=== PATIENT | male | born 1980 | race Caucasian/White ===

== ENCOUNTER 2016-04-02 01:53 | Emergency (ER) | payer OTHER ==
[~2016-04-02] VITALS: Ht 170.1 cm; Wt 97.5 kg
[~2016-04-02 01:53] MED LIST: ACETAMINOPHEN; AMOXICILLIN500 MG PO; ANAPROX DS550 MG PO; ANUSOL-HC25 MG R; AUGMENTIN 875 M1 TAB PO; AUGMENTIN 875875 MG PO; BACTRIM DS 8001 TA1 PO; CATAFLAM50 MG PO; CELEBREX200 MG PO; CIPRO500 MG PO; CLARITIN10 MG PO; CLEOCIN HCL150 MG PO; CLEOCIN150 MG; CLEOCIN150 MG PO; CLINDAMYCIN HC150 MG PO; CLINDAMYCIN HC300 MG PO; CLINDAMYCIN150 MG PO; DIFLUCAN200 MG; DOLOBID500 MG PO; EC NAPROSYN500 MG PO; FLAGYL500 MG PO; FLONASE ALLERG9.9 ML NAS; HYDROC; HYDROCODONE BIT1 T11 PO; IBU800 MG PO; IBUPROFEN200 M1; KEFLEX500 M1 PO; KEFLEX500 MG PO; KETOROLAC10 MG PO; LIDODERM 5% PATC1 EA T; MEDROL DOSEPAK4 MG PO; MELOXICAM7.5 MG PO; MIRALAX POWDER255 GM PO; MOTRIN 800 MG E4 TAB PO; MOTRIN IB200 MG PO; MOTRIN,RUFEN800 MG PO; MOTRIN800 MG; MOTRIN800 MG PO; Motrin,Rufen800 MG PO; NAPROSYN375 MG PO; NAPROSYN500 MG PO; NAPROXEN550 M1 PO; NEURONTIN300 MG PO; NKHM; NORCO 5-325 TA1 EACH PO; NORFLEX100 MG PO; OXAYDO5 MG PO; OXYCODONE HCL5 MG PO; Orphenadrine C100 MG PO; PEN-VEE K500 MG PO; PEN-VK500 MG PO; PENICILLIN VK500 MG PO; PERCOCET 325 MG1 TA2 PO; PERIDEX 480 ML480 ML PO; PREDNICOT20 MG PO; PREDNISONE10 MG PO; PREDNISONE20 M1 PO; RELAFEN500 MG PO; ROBAXIN750 MG PO; SEPTRA DS 800 M1 TAB PO; SKELAXIN800 M1 PO; TORADOL10 MG PO; TRIMOX500 MG PO; TYLENOL EXTRA500 M2 PO; VALIUM10 MG PO; VICO10300 PO; VICODIN 5/500 505 MG; VICODIN 5/500 505 MG PO; VICODIN 500 MG-1 TAB PO; VICODIN ES 7501 TAB PO; VOLTAREN50 M1 PO; VOLTAREN50 MG PO; VOLTAREN75 MG PO; WYMOX500 MG PO; ZANAFLEX4 M1 PO
[2016-04-02] MEDS ORDERED: PREDNISONE20 M1 PO (02:20)
[2016-04-02] MEDS ORDERED: SKELAXIN800 M1 PO (02:20)
[2016-04-02] MEDS ORDERED: Motrin,Rufen800 MG PO (02:23)
[2016-05-06] MEDS ORDERED: OXYCODONE HCL5 MG PO (01:35)
[2016-05-06] MEDS ORDERED: Motrin,Rufen800 MG PO (01:35)
[2016-05-06] MEDS ORDERED: Orphenadrine C100 MG PO (01:35)
[2016-05-10] MEDS ORDERED: NORCO 5-325 TA1 EACH PO (04:02)
[2016-05-10] MEDS ORDERED: BACTRIM DS 8001 TAB PO (04:02)
[2016-05-20] MEDS ORDERED: OXYCODONE HCL5 MG PO (02:45)
== END 2016-04-02 02:53 | disposition home or self-care (01) ==
LOC: ED 01:53
DX: M54.40 Lumbago with sciatica, unspecified side (principal); F17.200 Nicotine dependence, unspecified, uncomplicated; M25.512 Pain in left shoulder; M25.511 Pain in right shoulder; G89.29 Other chronic pain; Z98.890 Other specified postprocedural states; Z88.5 Allergy status to narcotic agent; Z88.6 Allergy status to analgesic agent; Z88.8 Allergy status to other drugs, medicaments and biological substances; X58.XXXA Exposure to other specified factors, initial encounter; Y93.89 Activity, other specified; Y92.69 Other specified industrial and construction area as the place of occurrence of the external cause; Y99.9 Unspecified external cause status

== ENCOUNTER 2016-04-04 00:43 | Emergency (ER) | payer OTHER ==
[~2016-04-04] VITALS: Ht 170.1 cm; Wt 97.5 kg
[2016-04-04] MEDS ORDERED: NEURONTIN300 MG PO (01:14)
[2016-04-05] MEDS ORDERED: HYDROCODONE BIT1 T11 PO (04:50)
[2016-05-06] MEDS ORDERED: OXYCODONE HCL5 MG PO (01:35)
[2016-05-06] MEDS ORDERED: Motrin,Rufen800 MG PO (01:35)
[2016-05-06] MEDS ORDERED: Orphenadrine C100 MG PO (01:35)
[2016-05-10] MEDS ORDERED: BACTRIM DS 8001 TAB PO (04:02)
[2016-05-10] MEDS ORDERED: NORCO 5-325 TA1 EACH PO (04:02)
[2016-05-20] MEDS ORDERED: OXYCODONE HCL5 MG PO (02:45)
== END 2016-04-04 01:30 | disposition home or self-care (01) ==
LOC: ED 00:43
DX: M54.40 Lumbago with sciatica, unspecified side (principal); M25.512 Pain in left shoulder; M25.511 Pain in right shoulder; G89.29 Other chronic pain; F17.200 Nicotine dependence, unspecified, uncomplicated; Z98.890 Other specified postprocedural states; Z88.5 Allergy status to narcotic agent; Z88.8 Allergy status to other drugs, medicaments and biological substances; X58.XXXA Exposure to other specified factors, initial encounter; Y93.89 Activity, other specified; Y92.89 Other specified places as the place of occurrence of the external cause; Y99.9 Unspecified external cause status

== ENCOUNTER 2016-04-05 03:05 | Emergency (ER) | payer OTHER ==
[~2016-04-05] VITALS: Ht 170.1 cm; Wt 97.5 kg
[2016-04-05 04:12] LABS: BILIRUBIN NEGATIVE (NEGATIVE); BLOOD NEGATIVE (NEGATIVE); CLARITY CLEAR (CLEAR); COLOR YELLOW (YELLOW); GLUCOSE NEGATIVE (NEGATIVE); KETONE TRACE (NEGATIVE); LEUKO ESTERASE NEGATIVE (NEGATIVE); NITRITE NEGATIVE (NEGATIVE); PH 6.5 (5.0-9.0); PROTEIN NEGATIVE (NEGATIVE); UROBILINOGEN 0.2 E.U./dl (0.2-1.0)
[2016-04-05 04:20] LABS: BACTERIA TRACE; EPITHELIAL CELLS 0-2; URINE REFLEX COMMENT NO (NO); WBC 0-2 wbc/hpf (0-5)
[2016-04-05 04:30] LABS: BASO % 0.4 % (0.0-1.0); EOS # 0.1 10*3/uL (0.0-0.4); EOS % 1.2 % (1.0-4.0); HEMATOCRIT 40.7 % (42.0-52.0); HEMOGLOBIN 13.7 g/dl (14.0-18.0); LYMPH % 20.4 % (27.0-41.0); MEAN CELL VOLUME 95.8 fl (80.0-94.0); MEAN CORPUSCULAR HGB 32.2 pg (27.0-31.0); MEAN CORPUSCULAR HGB CONC 33.7 g/dl (33.0-37.0); MEAN PLATELET VOLUME 9.5 fl (9.6-12.3); MONO # 0.6 10*3/uL (0.1-1.0); MONO % 5.5 % (3.0-9.0); NEUT # 7.2 10*3/uL (2.3-7.9); NEUT % 72.3 % (47.0-73.0); PLATELET COUNT AUTOMATED 251 10*3/uL (130-400); RED BLOOD COUNT 4.25 10*6/uL (4.50-5.90); RED CELL DISTRI WIDTH 11.8 % (0-14.5)
[2016-04-05 04:46] LABS: ALBUMIN 4.2 gm/dl (3.1-4.5); ALKALINE PHOSPHATASE 45 U/L (45-117); BILIRUBIN, TOTAL 0.4 mg/dl (0.2-1.0); BUN 13 mg/dl (7-24); CARBON DIOXIDE 28 mmol/L (21-32); CHLORIDE 107 mmol/L (98-107); EST GLOM FILT AFRICAN AMERICAN > 60 ml/min; GLUCOSE 100 mg/dL (65-99); MAGNESIUM 2.1 mg/dL (1.5-2.1); POTASSIUM 3.8 mmol/L (3.5-5.1); SGOT/AST 8 IU/L (3-35); SGPT/ALT 17 U/L (12-78); SODIUM 144 mmol/L (136-145); TOTAL PROTEIN 6.8 gm/dL (6.4-8.2)
[2016-04-05] MEDS ORDERED: HYDROCODONE BIT1 T11 PO (04:50)
[2016-05-06] MEDS ORDERED: Orphenadrine C100 MG PO (01:35)
[2016-05-06] MEDS ORDERED: Motrin,Rufen800 MG PO (01:35)
[2016-05-06] MEDS ORDERED: OXYCODONE HCL5 MG PO (01:35)
[2016-05-10] MEDS ORDERED: NORCO 5-325 TA1 EACH PO (04:02)
[2016-05-10] MEDS ORDERED: BACTRIM DS 8001 TAB PO (04:02)
[2016-05-20] MEDS ORDERED: OXYCODONE HCL5 MG PO (02:45)
== END 2016-04-05 05:21 | disposition home or self-care (01) ==
LOC: ED 03:05
PROVIDERS: Emergency Medicine
DX: M54.42 Lumbago with sciatica, left side (principal); M25.512 Pain in left shoulder; G89.29 Other chronic pain; F17.200 Nicotine dependence, unspecified, uncomplicated; Z88.6 Allergy status to analgesic agent; Z88.8 Allergy status to other drugs, medicaments and biological substances

== ENCOUNTER 2016-04-08 03:17 | Emergency (ER) | payer OTHER ==
[~2016-04-08] VITALS: Ht 170.1 cm; Wt 97.5 kg
[2016-04-08] MEDS ORDERED: OXYCODONE HCL5 MG PO (05:45)
[2016-04-08] MEDS ORDERED: ANAPROX DS550 MG PO (05:45)
[2016-04-08] MEDS ORDERED: SKELAXIN800 M1 PO (05:45)
[2016-05-06] MEDS ORDERED: Orphenadrine C100 MG PO (01:35)
[2016-05-06] MEDS ORDERED: OXYCODONE HCL5 MG PO (01:35)
[2016-05-06] MEDS ORDERED: Motrin,Rufen800 MG PO (01:35)
[2016-05-10] MEDS ORDERED: NORCO 5-325 TA1 EACH PO (04:02)
[2016-05-10] MEDS ORDERED: BACTRIM DS 8001 TAB PO (04:02)
[2016-05-20] MEDS ORDERED: OXYCODONE HCL5 MG PO (02:45)
== END 2016-04-08 05:51 | disposition home or self-care (01) ==
LOC: ED 03:17
DX: S39.012A Strain of muscle, fascia and tendon of lower back, initial encounter (principal); M54.32 Sciatica, left side; M25.511 Pain in right shoulder; M25.512 Pain in left shoulder; G89.29 Other chronic pain; Z88.6 Allergy status to analgesic agent; Z88.8 Allergy status to other drugs, medicaments and biological substances; X58.XXXA Exposure to other specified factors, initial encounter; Y93.9 Activity, unspecified; Y92.9 Unspecified place or not applicable; Y99.9 Unspecified external cause status

== ENCOUNTER 2016-06-11 00:45 | Emergency (ER) | payer OTHER ==
[~2016-06-11] VITALS: Ht 170.1 cm; Wt 97.5 kg
[~2016-06-11 00:45] MED LIST changes: +BACTRIM DS 8001 TAB PO
[2016-06-11] MEDS ORDERED: OXYCODONE HCL5 MG PO (01:53)
[2016-06-11] MEDS ORDERED: Orphenadrine C100 MG PO (01:53)
== END 2016-06-11 09:01 | disposition home or self-care (01) ==
LOC: ED 00:45
DX: M75.102 Unspecified rotator cuff tear or rupture of left shoulder, not specified as traumatic (principal); G89.29 Other chronic pain; F17.200 Nicotine dependence, unspecified, uncomplicated; Z88.6 Allergy status to analgesic agent; Z88.8 Allergy status to other drugs, medicaments and biological substances

== ENCOUNTER 2016-06-19 02:57 | Emergency (ER) | payer OTHER ==
[~2016-06-19] VITALS: Ht 175.2 cm; Wt 97.5 kg
[2016-06-19] MEDS ORDERED: Motrin,Rufen800 MG PO (03:55)
[2016-06-19] MEDS ORDERED: OXYCODONE HCL5 MG PO (03:55)
== END 2016-06-19 04:17 | disposition home or self-care (01) ==
LOC: ED 02:57
DX: M75.102 Unspecified rotator cuff tear or rupture of left shoulder, not specified as traumatic (principal); Z88.6 Allergy status to analgesic agent; Z88.8 Allergy status to other drugs, medicaments and biological substances

== ENCOUNTER 2016-06-30 04:06 | Emergency (ER) | payer OTHER ==
[~2016-06-30] VITALS: Ht 170.1 cm; Wt 97.5 kg
[2016-06-30] MEDS ORDERED: Motrin,Rufen800 MG PO (04:35)
[2016-06-30] MEDS ORDERED: OXYCODONE HCL5 MG PO (04:35)
== END 2016-06-30 05:20 | disposition home or self-care (01) ==
LOC: ED 04:06
DX: G89.29 Other chronic pain (principal); M25.512 Pain in left shoulder; F17.200 Nicotine dependence, unspecified, uncomplicated; Z88.6 Allergy status to analgesic agent; Z88.8 Allergy status to other drugs, medicaments and biological substances

== ENCOUNTER 2016-07-09 03:39 | Emergency (ER) | payer OTHER ==
[~2016-07-09] VITALS: Ht 170.1 cm; Wt 99.8 kg
[2016-07-09] MEDS ORDERED: OXYCODONE HCL5 MG PO (04:26)
[2016-07-09] MEDS ORDERED: Motrin,Rufen800 MG PO (04:26)
== END 2016-07-09 04:41 | disposition home or self-care (01) ==
LOC: ED 03:39
DX: M75.102 Unspecified rotator cuff tear or rupture of left shoulder, not specified as traumatic (principal); F17.200 Nicotine dependence, unspecified, uncomplicated; Z88.6 Allergy status to analgesic agent; Z88.8 Allergy status to other drugs, medicaments and biological substances

== ENCOUNTER 2016-07-30 00:43 | Emergency (ER) | payer OTHER ==
[~2016-07-30] VITALS: Ht 170.1 cm; Wt 97.5 kg
[2016-07-30] MEDS ORDERED: Motrin,Rufen800 MG PO (02:26)
[2016-07-30] MEDS ORDERED: Orphenadrine C100 MG PO (02:26)
[2016-07-30] MEDS ORDERED: OXYCODONE HYDROC5 MG PO (02:26)
== END 2016-07-30 03:07 | disposition home or self-care (01) ==
LOC: ED 00:43
DX: G89.29 Other chronic pain (principal); M75.102 Unspecified rotator cuff tear or rupture of left shoulder, not specified as traumatic; Z88.6 Allergy status to analgesic agent; Z88.8 Allergy status to other drugs, medicaments and biological substances

== ENCOUNTER 2016-08-05 01:25 | Emergency (ER) | payer OTHER ==
[~2016-08-05] VITALS: Ht 170.1 cm; Wt 97.5 kg
[~2016-08-05 01:25] MED LIST changes: +OXYCODONE HYDROC5 MG PO
[2016-08-05] MEDS ORDERED: Orphenadrine C100 MG PO (02:27)
[2016-08-05] MEDS ORDERED: OXYCODONE HCL5 MG PO (02:27)
== END 2016-08-05 02:38 | disposition home or self-care (01) ==
LOC: ED 01:25
DX: M75.92 Shoulder lesion, unspecified, left shoulder (principal); G89.29 Other chronic pain; Z98.890 Other specified postprocedural states; Z88.5 Allergy status to narcotic agent; Z88.8 Allergy status to other drugs, medicaments and biological substances; Z88.6 Allergy status to analgesic agent

== ENCOUNTER 2016-08-11 02:50 | Emergency (ER) | payer OTHER ==
[~2016-08-11] VITALS: Ht 170.1 cm; Wt 97.5 kg
[2016-08-11 04:37] LABS: BASO # 0.1 10*3/uL (0.0-0.1); BASO % 0.5 % (0.0-1.0); EOS # 0.1 10*3/uL (0.0-0.4); EOS % 0.7 % (1.0-4.0); HEMATOCRIT 45.6 % (42.0-52.0); HEMOGLOBIN 15.8 g/dl (14.0-18.0); LYMPH # 1.8 10*3/uL (1.3-4.4); LYMPH % 16.2 % (27.0-41.0); MEAN CELL VOLUME 93.4 fl (80.0-94.0); MEAN CORPUSCULAR HGB 32.4 pg (27.0-31.0); MEAN CORPUSCULAR HGB CONC 34.6 g/dl (33.0-37.0); MEAN PLATELET VOLUME 10.2 fl (9.6-12.3); MONO # 0.6 10*3/uL (0.1-1.0); MONO % 5.1 % (3.0-9.0); NEUT # 8.6 10*3/uL (2.3-7.9); NEUT % 77.3 % (47.0-73.0); PLATELET COUNT AUTOMATED 284 10*3/uL (130-400); RED BLOOD COUNT 4.88 10*6/uL (4.50-5.90); RED CELL DISTRI WIDTH 11.8 % (0-14.5); WHITE BLOOD COUNT 11.1 10*3/uL (4.8-10.8)
[2016-08-11 04:52] LABS: MAGNESIUM 2.1 mg/dL (1.5-2.1); TROPONIN I < 0.015 ng/ml (<0.045)
[2016-08-11 05:30] LABS: ALBUMIN 4.7 gm/dl (3.1-4.5); ALKALINE PHOSPHATASE 60 U/L (45-117); BILIRUBIN, TOTAL 0.4 mg/dl (0.2-1.0); BUN 9 mg/dl (7-24); CARBON DIOXIDE 28 mmol/L (21-32); CHLORIDE 105 mmol/L (98-107); EST GLOM FILT AFRICAN AMERICAN > 60 ml/min; GLUCOSE 107 mg/dL (65-99); POTASSIUM 4.1 mmol/L (3.5-5.1); SGOT/AST 15 IU/L (3-35); SGPT/ALT 19 U/L (12-78); SODIUM 144 mmol/L (136-145); TOTAL PROTEIN 7.7 gm/dL (6.4-8.2)
[2016-08-11] MEDS ORDERED: OXYCODONE HCL5 MG PO (06:25)
[2016-08-11] MEDS ORDERED: Motrin,Rufen800 MG PO (06:25)
[2016-08-11] MEDS ORDERED: CYCLOBENZAPRINE5 M3 PO (06:25)
[2016-08-11] MEDS ORDERED: ANAPROX DS550 MG PO (06:25)
== END 2016-08-11 06:29 | disposition home or self-care (01) ==
LOC: ED 02:50
PROVIDERS: Emergency Medicine Emergency Medical Services
DX: M75.102 Unspecified rotator cuff tear or rupture of left shoulder, not specified as traumatic (principal); M54.12 Radiculopathy, cervical region; R00.0 Tachycardia, unspecified; F17.200 Nicotine dependence, unspecified, uncomplicated; G89.29 Other chronic pain; Z88.6 Allergy status to analgesic agent; Z88.8 Allergy status to other drugs, medicaments and biological substances

== ENCOUNTER 2016-08-22 02:14 | Emergency (ER) | payer OTHER ==
[~2016-08-22] VITALS: Ht 170.1 cm; Wt 97.5 kg
[~2016-08-22 02:14] MED LIST changes: +CYCLOBENZAPRINE5 M3 PO
== END 2016-08-22 04:39 | disposition home or self-care (01) ==
LOC: ED 02:14
DX: M25.512 Pain in left shoulder (principal); Z88.6 Allergy status to analgesic agent; Z88.8 Allergy status to other drugs, medicaments and biological substances

== ENCOUNTER 2016-08-25 00:49 | Emergency (ER) | payer OTHER ==
[~2016-08-25] VITALS: Ht 170.1 cm; Wt 97.5 kg
[2016-08-26] MEDS ORDERED: Motrin,Rufen800 MG PO (01:21)
[2016-08-26] MEDS ORDERED: Orphenadrine C100 MG PO (01:21)
[2016-08-26] MEDS ORDERED: OXYCODONE HCL5 MG PO (01:21)
== END 2016-08-25 01:15 | disposition home or self-care (01) ==
LOC: ED 00:49
DX: G89.29 Other chronic pain (principal); M25.512 Pain in left shoulder; F17.200 Nicotine dependence, unspecified, uncomplicated; Z88.6 Allergy status to analgesic agent; Z88.8 Allergy status to other drugs, medicaments and biological substances

== ENCOUNTER 2016-08-26 00:45 | Emergency (ER) | payer OTHER ==
[~2016-08-26] VITALS: Ht 170.1 cm; Wt 97.5 kg
[2016-08-26] MEDS ORDERED: OXYCODONE HCL5 MG PO (01:21)
[2016-08-26] MEDS ORDERED: Orphenadrine C100 MG PO (01:21)
[2016-08-26] MEDS ORDERED: Motrin,Rufen800 MG PO (01:21)
== END 2016-08-26 01:51 | disposition home or self-care (01) ==
LOC: ED 00:45
DX: S43.102D Unspecified dislocation of left acromioclavicular joint, subsequent encounter (principal); M67.912 Unspecified disorder of synovium and tendon, left shoulder; Z98.890 Other specified postprocedural states; Z88.5 Allergy status to narcotic agent; Z88.8 Allergy status to other drugs, medicaments and biological substances; Z88.6 Allergy status to analgesic agent; X58.XXXD Exposure to other specified factors, subsequent encounter

== ENCOUNTER 2016-09-03 01:07 | Emergency (ER) | payer OTHER ==
[~2016-09-03] VITALS: Ht 170.1 cm; Wt 95.3 kg
[2016-09-03] MEDS ORDERED: OXYCODONE HCL5 MG PO (01:52)
== END 2016-09-03 04:06 | disposition home or self-care (01) ==
LOC: ED 01:07
DX: S43.102A Unspecified dislocation of left acromioclavicular joint, initial encounter (principal); M67.912 Unspecified disorder of synovium and tendon, left shoulder; F17.200 Nicotine dependence, unspecified, uncomplicated; Z88.8 Allergy status to other drugs, medicaments and biological substances; Z88.6 Allergy status to analgesic agent; X58.XXXA Exposure to other specified factors, initial encounter; Y93.9 Activity, unspecified; Y92.9 Unspecified place or not applicable; Y99.9 Unspecified external cause status

== ENCOUNTER 2016-09-14 02:52 | Emergency (ER) | payer OTHER ==
[~2016-09-14] VITALS: Ht 170.1 cm; Wt 95.3 kg
[2016-09-14] MEDS ORDERED: MEDROL DOSEPAK4 MG PO (03:13)
== END 2016-09-14 03:27 | disposition home or self-care (01) ==
LOC: ED 02:52
DX: G89.29 Other chronic pain (principal); M25.512 Pain in left shoulder; F17.200 Nicotine dependence, unspecified, uncomplicated; Z88.6 Allergy status to analgesic agent; Z88.8 Allergy status to other drugs, medicaments and biological substances

== ENCOUNTER 2016-09-18 02:48 | Emergency (ER) | payer OTHER ==
[~2016-09-18] VITALS: Ht 170.1 cm; Wt 93.0 kg
[2016-09-18 03:48] LABS: BASO % 0.2 % (0.0-1.0); EOS # 0.1 10*3/uL (0.0-0.4); EOS % 0.5 % (1.0-4.0); HEMATOCRIT 42.1 % (42.0-52.0); HEMOGLOBIN 14.3 g/dl (14.0-18.0); LYMPH # 1.2 10*3/uL (1.3-4.4); LYMPH % 11.5 % (27.0-41.0); MEAN CELL VOLUME 95.5 fl (80.0-94.0); MEAN CORPUSCULAR HGB 32.4 pg (27.0-31.0); MEAN PLATELET VOLUME 9.8 fl (9.6-12.3); MONO # 0.6 10*3/uL (0.1-1.0); NEUT # 8.5 10*3/uL (2.3-7.9); NEUT % 81.4 % (47.0-73.0); PLATELET COUNT AUTOMATED 200 10*3/uL (130-400); RED BLOOD COUNT 4.41 10*6/uL (4.50-5.90); RED CELL DISTRI WIDTH 12.1 % (0-14.5); WHITE BLOOD COUNT 10.5 10*3/uL (4.8-10.8)
[2016-09-18 03:58] LABS: BUN 7 mg/dl (7-24); CARBON DIOXIDE 29 mmol/L (21-32); CHLORIDE 107 mmol/L (98-107); EST GLOM FILT AFRICAN AMERICAN > 60 ml/min; GLUCOSE 105 mg/dL (65-99); POTASSIUM 3.4 mmol/L (3.5-5.1); SODIUM 143 mmol/L (136-145)
[2016-09-18 04:00] LABS: C-REACTIVE PROTEIN < 0.29 MG/DL (0-0.3)
[2016-09-18] MEDS ORDERED: Motrin,Rufen800 MG PO (04:45)
[2016-09-18] MEDS ORDERED: OXYCODONE HYDROC5 MG PO (04:45)
[2016-09-18] MEDS ORDERED: LOPRESSOR50 M1 PO (05:26)
== END 2016-09-18 05:40 | disposition home or self-care (01) ==
LOC: ED 02:48
PROVIDERS: Emergency Medicine Emergency Medical Services
DX: G89.29 Other chronic pain (principal); M25.512 Pain in left shoulder; I10 Essential (primary) hypertension; F17.200 Nicotine dependence, unspecified, uncomplicated; Z88.6 Allergy status to analgesic agent; Z88.8 Allergy status to other drugs, medicaments and biological substances

== ENCOUNTER 2016-09-25 01:02 | Emergency (ER) | payer OTHER ==
[~2016-09-25] VITALS: Ht 170.1 cm; Wt 93.0 kg
[~2016-09-25 01:02] MED LIST changes: +LOPRESSOR50 M1 PO
== END 2016-09-25 02:24 | disposition home or self-care (01) ==
LOC: ED 01:02
DX: G89.29 Other chronic pain (principal); M25.512 Pain in left shoulder; F17.200 Nicotine dependence, unspecified, uncomplicated; Z88.6 Allergy status to analgesic agent; Z88.8 Allergy status to other drugs, medicaments and biological substances; Z98.890 Other specified postprocedural states

== ENCOUNTER 2016-09-29 01:54 | Emergency (ER) | payer OTHER ==
[~2016-09-29] VITALS: Ht 170.1 cm; Wt 93.0 kg
[2016-09-29] MEDS ORDERED: Orphenadrine C100 MG PO (03:26)
[2016-09-29] MEDS ORDERED: OXYCODONE HCL5 MG PO (03:26)
[2016-09-29] MEDS ORDERED: Motrin,Rufen800 MG PO (03:26)
== END 2016-09-29 03:43 | disposition home or self-care (01) ==
LOC: ED 01:54
DX: G89.29 Other chronic pain (principal); M67.912 Unspecified disorder of synovium and tendon, left shoulder; M25.512 Pain in left shoulder; F17.200 Nicotine dependence, unspecified, uncomplicated; Z88.6 Allergy status to analgesic agent; Z88.8 Allergy status to other drugs, medicaments and biological substances

== ENCOUNTER 2016-10-09 02:05 | Emergency (ER) | payer OTHER ==
[~2016-10-09] VITALS: Ht 170.1 cm; Wt 93.0 kg
== END 2016-10-09 02:36 | disposition home or self-care (01) ==
LOC: ED 02:05
DX: G89.29 Other chronic pain (principal); M25.512 Pain in left shoulder; Z76.0 Encounter for issue of repeat prescription; F17.200 Nicotine dependence, unspecified, uncomplicated; Z88.6 Allergy status to analgesic agent; Z88.8 Allergy status to other drugs, medicaments and biological substances

== ENCOUNTER 2016-10-12 01:19 | Emergency (ER) | payer OTHER ==
[~2016-10-12] VITALS: Ht 170.1 cm; Wt 93.0 kg
[2016-10-12] MEDS ORDERED: OXYCODONE HCL5 MG PO (02:38)
[2016-10-12] MEDS ORDERED: LOPRESSOR50 M1 PO (02:38)
[2016-10-12] MEDS ORDERED: Orphenadrine C100 MG PO (02:38)
== END 2016-10-12 02:59 | disposition home or self-care (01) ==
LOC: ED 01:19
DX: M75.102 Unspecified rotator cuff tear or rupture of left shoulder, not specified as traumatic (principal); G89.29 Other chronic pain; F17.200 Nicotine dependence, unspecified, uncomplicated; Z98.890 Other specified postprocedural states; Z88.5 Allergy status to narcotic agent; Z88.8 Allergy status to other drugs, medicaments and biological substances; Z88.6 Allergy status to analgesic agent

== ENCOUNTER 2016-10-19 04:40 | Emergency (ER) | payer OTHER ==
[~2016-10-19] VITALS: Ht 170.1 cm; Wt 93.0 kg
[2016-10-19] MEDS ORDERED: AUGMENTIN 875875 MG PO (05:02)
== END 2016-10-19 05:18 | disposition home or self-care (01) ==
LOC: ED 04:40
DX: H60.01 Abscess of right external ear (principal); Z88.6 Allergy status to analgesic agent; Z88.8 Allergy status to other drugs, medicaments and biological substances

== ENCOUNTER 2016-10-21 01:27 | Emergency (ER) | payer OTHER ==
[~2016-10-21] VITALS: Ht 172.7 cm; Wt 97.5 kg
[2016-10-21] MEDS ORDERED: Orphenadrine C100 MG PO (02:15)
[2016-10-21] MEDS ORDERED: Motrin,Rufen800 MG PO (02:15)
[2016-10-21] MEDS ORDERED: OXYCODONE HCL5 MG PO (02:15)
== END 2016-10-21 02:58 | disposition home or self-care (01) ==
LOC: ED 01:27
DX: G89.29 Other chronic pain (principal); M25.512 Pain in left shoulder; F17.200 Nicotine dependence, unspecified, uncomplicated; Z88.6 Allergy status to analgesic agent; Z88.8 Allergy status to other drugs, medicaments and biological substances

== ENCOUNTER 2016-10-27 02:22 | Emergency (ER) | payer OTHER ==
[~2016-10-27] VITALS: Ht 170.1 cm; Wt 93.9 kg
[2016-10-27] MEDS ORDERED: LOPRESSOR50 M1 PO (03:38)
[2016-10-27] MEDS ORDERED: OXYCODONE HCL5 MG PO (03:44)
[2016-10-27] MEDS ORDERED: Orphenadrine C100 MG PO (03:44)
[2016-10-27] MEDS ORDERED: Motrin,Rufen800 MG PO (03:44)
== END 2016-10-27 06:59 ==
LOC: ED 02:22
DX: S43.102S Unspecified dislocation of left acromioclavicular joint, sequela (principal); G89.29 Other chronic pain; I10 Essential (primary) hypertension; B07.0 Plantar wart; M75.102 Unspecified rotator cuff tear or rupture of left shoulder, not specified as traumatic; F17.200 Nicotine dependence, unspecified, uncomplicated; Z98.890 Other specified postprocedural states; Z88.5 Allergy status to narcotic agent; Z88.6 Allergy status to analgesic agent; Z88.8 Allergy status to other drugs, medicaments and biological substances; X58.XXXS Exposure to other specified factors, sequela

== ENCOUNTER 2016-11-06 01:12 | Emergency (ER) | payer OTHER ==
[~2016-11-06] VITALS: Ht 170.1 cm; Wt 93.9 kg
[2016-11-06] MEDS ORDERED: OXYCODONE HCL5 MG PO (02:20)
[2016-11-06] MEDS ORDERED: Orphenadrine C100 MG PO ×2 (02:20→02:23)
[2016-11-06] MEDS ORDERED: Motrin,Rufen800 MG PO ×2 (02:20→02:23)
[2016-11-06] MEDS ORDERED: TENORMIN50 MG PO ×2 (02:20→02:23)
[2016-11-06] MEDS ORDERED: LOPRESSOR50 M1 PO (02:23)
== END 2016-11-06 03:22 | disposition home or self-care (01) ==
LOC: ED 01:12
DX: G89.29 Other chronic pain (principal); M67.912 Unspecified disorder of synovium and tendon, left shoulder; I15.9 Secondary hypertension, unspecified; F17.200 Nicotine dependence, unspecified, uncomplicated; Z88.6 Allergy status to analgesic agent; Z88.8 Allergy status to other drugs, medicaments and biological substances

== ENCOUNTER 2017-04-12 01:40 | Emergency (ER) | payer OTHER ==
[~2017-04-12] VITALS: Ht 175.2 cm; Wt 90.7 kg
[~2017-04-12 01:40] MED LIST changes: +TENORMIN50 MG PO
[2017-04-12] MEDS ORDERED: Motrin,Rufen800 MG PO (03:06)
[2017-04-12] MEDS ORDERED: Orphenadrine C100 MG PO (03:06)
== END 2017-04-12 03:29 | disposition home or self-care (01) ==
LOC: ED 01:40
DX: M75.102 Unspecified rotator cuff tear or rupture of left shoulder, not specified as traumatic (principal); G89.29 Other chronic pain; I10 Essential (primary) hypertension; F17.200 Nicotine dependence, unspecified, uncomplicated; Z98.890 Other specified postprocedural states; Z88.5 Allergy status to narcotic agent; Z88.8 Allergy status to other drugs, medicaments and biological substances; Z88.6 Allergy status to analgesic agent

== ENCOUNTER 2017-04-18 02:32 | Emergency (ER) | payer SELFPAY ==
[~2017-04-18] VITALS: Ht 170.1 cm; Wt 83.0 kg
[2017-04-18] MEDS ORDERED: BENADRYL ALLERG25 M5 PO (03:47)
== END 2017-04-18 04:04 | disposition home or self-care (01) ==
LOC: ED 02:32
DX: R21 Rash and other nonspecific skin eruption (principal); F17.200 Nicotine dependence, unspecified, uncomplicated; G89.29 Other chronic pain; I10 Essential (primary) hypertension; Z98.890 Other specified postprocedural states; Z88.5 Allergy status to narcotic agent; Z88.6 Allergy status to analgesic agent; Z88.8 Allergy status to other drugs, medicaments and biological substances

== ENCOUNTER 2017-05-01 01:12 | Emergency (ER) | payer SELFPAY ==
[~2017-05-01] VITALS: Ht 170.1 cm; Wt 83.0 kg
[~2017-05-01 01:12] MED LIST changes: +BENADRYL ALLERG25 M5 PO
[2017-05-01] MEDS ORDERED: CLINDAMYCIN HC300 MG PO (01:28)
[2017-05-01] MEDS ORDERED: ANAPROX DS550 MG PO (01:28)
== END 2017-05-01 01:48 | disposition home or self-care (01) ==
LOC: ED 01:12
DX: L03.113 Cellulitis of right upper limb (principal); F17.200 Nicotine dependence, unspecified, uncomplicated; Z98.890 Other specified postprocedural states; Z88.5 Allergy status to narcotic agent; Z88.6 Allergy status to analgesic agent; Z88.8 Allergy status to other drugs, medicaments and biological substances

== ENCOUNTER 2017-05-15 02:02 | Emergency (ER) | payer SELFPAY ==
[~2017-05-15] VITALS: Ht 170.1 cm; Wt 86.2 kg
== END 2017-05-15 03:21 | disposition home or self-care (01) ==
LOC: ED 02:02
DX: M25.512 Pain in left shoulder (principal); G89.29 Other chronic pain; M79.641 Pain in right hand; I10 Essential (primary) hypertension; Z88.6 Allergy status to analgesic agent; Z88.5 Allergy status to narcotic agent; Z88.8 Allergy status to other drugs, medicaments and biological substances

== ENCOUNTER 2017-05-19 02:42 | Emergency (ER) | payer SELFPAY ==
[~2017-05-19] VITALS: Ht 170.1 cm; Wt 87.5 kg
[2017-05-19 03:21] LABS: BASO # 0.1 10*3/uL (0.0-0.1); BASO % 0.5 % (0.0-1.0); EOS # 0.1 10*3/uL (0.0-0.4); EOS % 0.9 % (1.0-4.0); HEMATOCRIT 41.6 % (42.0-52.0); HEMOGLOBIN 14.4 g/dl (14.0-18.0); LYMPH # 1.7 10*3/uL (1.3-4.4); LYMPH % 17.6 % (27.0-41.0); MEAN CELL VOLUME 93.9 fl (80.0-94.0); MEAN CORPUSCULAR HGB 32.5 pg (27.0-31.0); MEAN CORPUSCULAR HGB CONC 34.6 g/dl (33.0-37.0); MEAN PLATELET VOLUME 9.7 fl (9.6-12.3); MONO # 0.6 10*3/uL (0.1-1.0); NEUT # 7.4 10*3/uL (2.3-7.9); NEUT % 74.7 % (47.0-73.0); PLATELET COUNT AUTOMATED 249 10*3/uL (130-400); RED BLOOD COUNT 4.43 10*6/uL (4.50-5.90); WHITE BLOOD COUNT 9.9 10*3/uL (4.8-10.8)
[2017-05-19 03:37] LABS: ALBUMIN 4.4 gm/dl (3.1-4.5); ALKALINE PHOSPHATASE 50 U/L (45-117); BUN 10 mg/dl (7-24); CHLORIDE 102 mmol/L (98-107); CREATININE 0.78 mg/dL (0.70-1.30); POTASSIUM 3.6 mmol/L (3.5-5.1); SGOT/AST 11 IU/L (3-35); SGPT/ALT 20 U/L (12-78); SODIUM 137 mmol/L (136-145); TOTAL PROTEIN 7.2 gm/dL (6.4-8.2)
[2017-05-19 03:38] LABS: TROPONIN I < 0.015 ng/ml (<0.045)
[2017-05-19 03:43] LABS: THYROID STIM HORMONE (HS) 0.713 uIU/ml (0.358-4.75)
[2017-05-19 04:32] LABS: BILIRUBIN NEGATIVE (NEGATIVE); BLOOD NEGATIVE (NEGATIVE); CLARITY CLEAR (CLEAR); COLOR YELLOW (YELLOW); GLUCOSE NEGATIVE (NEGATIVE); KETONE NEGATIVE (NEGATIVE); LEUKO ESTERASE NEGATIVE (NEGATIVE); NITRITE NEGATIVE (NEGATIVE); PH 6.5 (5.0-9.0); UROBILINOGEN 0.2 E.U./dl (0.2-1.0)
[2017-05-19 04:37] LABS: WBC 0-2 wbc/hpf (0-5)
[2017-05-19 04:42] LABS: URINE AMPHETAMINES < 1000 (1000ng/ml); URINE BARBITURATES < 200 (200ng/ml); URINE BENZODIAZEPINES < 200 (200ng/ml); URINE CANNABINOIDS (THC) < 50 (50ng/ml); URINE COCAINE < 300 (300ng/ml); URINE METHADONE < 300 (300ng/ml); URINE OPIATES < 300 (300ng/ml); URINE PHENCYCLIDINE < 25 (25ng/ml)
[2017-05-19] MEDS ORDERED: LOPRESSOR50 M1 PO (04:56)
[2017-05-19] MEDS ORDERED: Motrin,Rufen800 MG PO (04:56)
[2017-05-19] MEDS ORDERED: Orphenadrine C100 MG PO (04:56)
== END 2017-05-19 05:04 | disposition home or self-care (01) ==
LOC: ED 02:42
PROVIDERS: Emergency Medicine Emergency Medical Services
DX: I10 Essential (primary) hypertension (principal); G89.29 Other chronic pain; M75.102 Unspecified rotator cuff tear or rupture of left shoulder, not specified as traumatic; Z88.5 Allergy status to narcotic agent

== ENCOUNTER 2017-05-24 00:49 | Emergency (ER) | payer SELFPAY ==
[~2017-05-24] VITALS: Wt 87.5 kg
== END 2017-05-24 01:26 | disposition home or self-care (01) ==
LOC: ED 00:49
DX: G89.29 Other chronic pain (principal); M25.512 Pain in left shoulder; I10 Essential (primary) hypertension; F17.200 Nicotine dependence, unspecified, uncomplicated; Z98.890 Other specified postprocedural states; Z88.5 Allergy status to narcotic agent; Z88.6 Allergy status to analgesic agent; Z88.8 Allergy status to other drugs, medicaments and biological substances

== ENCOUNTER 2017-06-08 00:42 | Emergency (ER) | payer SELFPAY ==
[2017-06-08] MEDS ORDERED: PREDNISONE50 MG PO (00:55)
== END 2017-06-08 01:28 | disposition home or self-care (01) ==
LOC: ED 00:42
DX: M25.512 Pain in left shoulder (principal); Z76.5 Malingerer [conscious simulation]; G89.29 Other chronic pain; I10 Essential (primary) hypertension; Z88.6 Allergy status to analgesic agent; Z88.8 Allergy status to other drugs, medicaments and biological substances

== ENCOUNTER 2017-06-10 04:00 | Emergency (ER) | payer SELFPAY ==
[~2017-06-10] VITALS: Ht 170.1 cm; Wt 88.5 kg
[~2017-06-10 04:00] MED LIST changes: +PREDNISONE50 MG PO
[2017-06-10 05:20] LABS: BASO % 0.4 % (0.0-1.0); EOS # 0.1 10*3/uL (0.0-0.4); EOS % 1.1 % (1.0-4.0); HEMATOCRIT 44.7 % (42.0-52.0); HEMOGLOBIN 15.2 g/dl (14.0-18.0); LYMPH # 2.1 10*3/uL (1.3-4.4); LYMPH % 24.8 % (27.0-41.0); MEAN CELL VOLUME 94.3 fl (80.0-94.0); MEAN CORPUSCULAR HGB 32.1 pg (27.0-31.0); MEAN PLATELET VOLUME 9.7 fl (9.6-12.3); MONO # 0.6 10*3/uL (0.1-1.0); MONO % 6.4 % (3.0-9.0); NEUT # 5.8 10*3/uL (2.3-7.9); NEUT % 67.1 % (47.0-73.0); PLATELET COUNT AUTOMATED 245 10*3/uL (130-400); RED BLOOD COUNT 4.74 10*6/uL (4.50-5.90); RED CELL DISTRI WIDTH 11.9 % (0-14.5); WHITE BLOOD COUNT 8.6 10*3/uL (4.8-10.8)
[2017-06-10 05:32] LABS: BUN 9 mg/dl (7-24); CHLORIDE 103 mmol/L (98-107); CREATININE 0.91 mg/dL (0.70-1.30); POTASSIUM 3.1 mmol/L (3.5-5.1); SODIUM 139 mmol/L (136-145)
[2017-06-10] MEDS ORDERED: LOPRESSOR50 M1 PO (05:38)
[2017-06-10] MEDS ORDERED: Orphenadrine C100 MG PO (05:38)
[2017-06-10] MEDS ORDERED: Motrin,Rufen800 MG PO (05:38)
== END 2017-06-10 06:30 | disposition home or self-care (01) ==
LOC: ED 04:00
PROVIDERS: Emergency Medicine Emergency Medical Services
DX: M77.8 Other enthesopathies, not elsewhere classified (principal); M25.512 Pain in left shoulder; I10 Essential (primary) hypertension; G89.29 Other chronic pain; Z98.890 Other specified postprocedural states; Z79.899 Other long term (current) drug therapy; Z88.5 Allergy status to narcotic agent; Z88.6 Allergy status to analgesic agent; Z88.8 Allergy status to other drugs, medicaments and biological substances

== ENCOUNTER 2017-06-22 00:54 | Emergency (ER) | payer SELFPAY ==
[2017-06-22] MEDS ORDERED: LOPRESSOR50 M1 PO (02:07)
== END 2017-06-22 03:07 | disposition home or self-care (01) ==
LOC: ED 00:54
DX: G89.29 Other chronic pain (principal); M25.512 Pain in left shoulder; I10 Essential (primary) hypertension; Z98.890 Other specified postprocedural states; Z79.899 Other long term (current) drug therapy

== ENCOUNTER 2017-07-06 01:31 | Emergency (ER) | payer SELFPAY ==
[~2017-07-06] VITALS: Ht 177.8 cm; Wt 99.8 kg
[2017-07-06] MEDS ORDERED: ORPHENADRINE C100 M1 PO (01:39)
[2017-07-06] MEDS ORDERED: Motrin,Rufen800 MG PO (01:39)
== END 2017-07-06 01:44 | disposition home or self-care (01) ==
LOC: ED 01:31
DX: G89.29 Other chronic pain (principal); M25.512 Pain in left shoulder; Z88.6 Allergy status to analgesic agent; Z88.8 Allergy status to other drugs, medicaments and biological substances; I10 Essential (primary) hypertension

== ENCOUNTER 2018-11-25 16:53 | Emergency (ER) | payer SELFPAY ==
[~2018-11-25] VITALS: Ht 170.1 cm; Wt 100.7 kg
[~2018-11-25 16:53] MED LIST changes: +FLOMAX0.4 MG PO; +ORPHENADRINE C100 M1 PO
[2018-11-25] MEDS ORDERED: AMOXICILLIN500 M3 PO (17:26)
== END 2018-11-25 17:48 | disposition home or self-care (01) ==
LOC: ED 16:53
DX: J02.9 Acute pharyngitis, unspecified (principal); F17.200 Nicotine dependence, unspecified, uncomplicated; Z88.6 Allergy status to analgesic agent; Z88.8 Allergy status to other drugs, medicaments and biological substances

== ENCOUNTER 2018-12-20 23:17 | Emergency (ER) | payer MEDICAID ==
[~2018-12-20] VITALS: Ht 170.1 cm; Wt 98.9 kg
[~2018-12-20 23:17] MED LIST changes: +AMOXICILLIN500 M3 PO
[2018-12-20] MEDS ORDERED: FLONASE ALLERG9.9 ML NAS (23:58)
[2018-12-20] MEDS ORDERED: ALLEGRA-D 24 H1 EACH PO (23:58)
== END 2018-12-21 00:19 | disposition home or self-care (01) ==
LOC: ED 23:17
DX: J32.9 Chronic sinusitis, unspecified (principal); F17.200 Nicotine dependence, unspecified, uncomplicated; Z88.5 Allergy status to narcotic agent; Z88.8 Allergy status to other drugs, medicaments and biological substances; Z88.6 Allergy status to analgesic agent; Z79.2 Long term (current) use of antibiotics; Z79.899 Other long term (current) drug therapy

== ENCOUNTER 2019-01-05 06:59 | Emergency (ER) | payer MEDICAID ==
[~2019-01-05] VITALS: Ht 170.1 cm; Wt 103.0 kg
[~2019-01-05 06:59] MED LIST changes: +ALLEGRA-D 24 H1 EACH PO
[2019-01-05 07:42] LABS: BASO % 0.3 % (0.0-1.0); EOS # 0.1 10*3/uL (0.0-0.4); HEMATOCRIT 40.8 % (42.0-52.0); HEMOGLOBIN 12.9 g/dl (14.0-18.0); LYMPH % 17.2 % (27.0-41.0); MEAN CELL VOLUME 103.8 fl (80.0-94.0); MEAN CORPUSCULAR HGB 32.8 pg (27.0-31.0); MEAN CORPUSCULAR HGB CONC 31.6 g/dl (33.0-37.0); MEAN PLATELET VOLUME 8.2 fl (9.6-12.3); MONO % 8.5 % (3.0-9.0); NEUT # 8.6 10*3/uL (2.3-7.9); NEUT % 72.5 % (47.0-73.0); PLATELET COUNT AUTOMATED 405 10*3/uL (130-400); RED BLOOD COUNT 3.93 10*6/uL (4.50-5.90); RED CELL DISTRI WIDTH 13.4 % (0-14.5); WHITE BLOOD COUNT 11.8 10*3/uL (4.8-10.8)
[2019-01-05 07:59] LABS: ALBUMIN 3.2 gm/dl (3.1-4.5); ALKALINE PHOSPHATASE 79 U/L (45-117); BUN 12 mg/dl (7-24); CHLORIDE 101 mmol/L (98-107); CREATININE 0.73 mg/dL (0.70-1.30); POTASSIUM 3.4 mmol/L (3.5-5.1); SGOT/AST 15 IU/L (3-35); SGPT/ALT 28 U/L (12-78); SODIUM 137 mmol/L (136-145); TOTAL PROTEIN 7.6 gm/dL (6.4-8.2)
[2019-01-05] MEDS ORDERED: AMOXICILLIN500 M2 PO (08:17)
== END 2019-01-05 08:20 | disposition home or self-care (01) ==
LOC: ED 06:59
PROVIDERS: Emergency Medicine
DX: J40 Bronchitis, not specified as acute or chronic (principal); J02.9 Acute pharyngitis, unspecified; H92.03 Otalgia, bilateral; I10 Essential (primary) hypertension; G89.29 Other chronic pain; Z88.5 Allergy status to narcotic agent; Z88.8 Allergy status to other drugs, medicaments and biological substances; Z79.899 Other long term (current) drug therapy; Z79.2 Long term (current) use of antibiotics

== ENCOUNTER 2019-01-18 14:04 | Emergency (ER) | payer OTHER ==
[~2019-01-18] VITALS: Ht 170.1 cm; Wt 105.2 kg
[~2019-01-18 14:04] MED LIST changes: +AMOXICILLIN500 M2 PO
[2019-01-18 15:26] LABS: BILIRUBIN NEGATIVE (NEGATIVE); BLOOD TRACE-INTACT (NEGATIVE); CLARITY SL CLOUDY (CLEAR); COLOR YELLOW (YELLOW); GLUCOSE NEGATIVE (NEGATIVE); KETONE NEGATIVE (NEGATIVE); LEUKO ESTERASE NEGATIVE (NEGATIVE); NITRITE NEGATIVE (NEGATIVE); SPECIFIC GRAVITY 1.015 (1.005-1.030); UROBILINOGEN 0.2 E.U./dl (0.2-1.0)
[2019-01-18 15:33] LABS: URINE AMPHETAMINES < 1000 (1000ng/ml); URINE BARBITURATES < 200 (200ng/ml); URINE BENZODIAZEPINES < 200 (200ng/ml); URINE CANNABINOIDS (THC) < 50 (50ng/ml); URINE COCAINE < 300 (300ng/ml); URINE METHADONE < 300 (300ng/ml); URINE OPIATES < 300 (300ng/ml)
[2019-01-18 15:42] LABS: URINE PHENCYCLIDINE < 25 (25ng/ml)
[2019-01-18 15:50] LABS: BACTERIA TRACE; EPITHELIAL CELLS 0-2; MUCOUS TRACE; WBC 0-2 wbc/hpf (0-5)
[2019-01-18 15:51] LABS: YEAST TRACE
[2019-01-18] MEDS ORDERED: FLUCONAZOLE100 MG PO (16:02)
[2019-01-18] MEDS ORDERED: NYST SUSP PO (16:02)
== END 2019-01-18 16:07 | disposition home or self-care (01) ==
LOC: ED 14:04
PROVIDERS: Nurse Practitioner Family
DX: B37.0 Candidal stomatitis (principal); B37.49 Other urogenital candidiasis; I10 Essential (primary) hypertension; J45.909 Unspecified asthma, uncomplicated; G89.29 Other chronic pain; Z88.5 Allergy status to narcotic agent; Z88.8 Allergy status to other drugs, medicaments and biological substances; Z79.899 Other long term (current) drug therapy; Z79.2 Long term (current) use of antibiotics

== ENCOUNTER 2019-01-27 06:12 | Emergency (ER) | payer OTHER ==
[~2019-01-27] VITALS: Ht 170.1 cm; Wt 106.6 kg
[~2019-01-27 06:12] MED LIST changes: +FLUCONAZOLE100 MG PO; +NYST SUSP PO
[2019-01-27] MEDS ORDERED: CLOTRIMAZOLE TR10 MG MM (06:34)
== END 2019-01-27 06:44 | disposition home or self-care (01) ==
LOC: ED 06:12
DX: B37.0 Candidal stomatitis (principal); J02.9 Acute pharyngitis, unspecified; G89.29 Other chronic pain; I10 Essential (primary) hypertension; J45.909 Unspecified asthma, uncomplicated; Z88.5 Allergy status to narcotic agent; Z88.8 Allergy status to other drugs, medicaments and biological substances; Z79.899 Other long term (current) drug therapy; Z79.2 Long term (current) use of antibiotics

== ENCOUNTER 2019-03-24 23:43 | Emergency (ER) | payer OTHER ==
[~2019-03-24] VITALS: Ht 170.1 cm; Wt 87.1 kg
[~2019-03-24 23:43] MED LIST changes: +CLOTRIMAZOLE TR10 MG MM
[2019-03-25 02:10] LABS: BILIRUBIN NEGATIVE (NEGATIVE); BLOOD TRACE-INTACT (NEGATIVE); CLARITY SL CLOUDY (CLEAR); COLOR YELLOW (YELLOW); GLUCOSE NEGATIVE (NEGATIVE); KETONE NEGATIVE (NEGATIVE); LEUKO ESTERASE NEGATIVE (NEGATIVE); NITRITE NEGATIVE (NEGATIVE); UROBILINOGEN 0.2 E.U./dl (0.2-1.0)
[2019-03-25 02:19] LABS: ALBUMIN 2.9 gm/dl (3.1-4.5); ALKALINE PHOSPHATASE 78 U/L (45-117); BUN 7 mg/dl (7-24); CHLORIDE 103 mmol/L (98-107); CREATININE 0.64 mg/dL (0.70-1.30); POTASSIUM 3.5 mmol/L (3.5-5.1); SGOT/AST 9 IU/L (3-35); SGPT/ALT 19 U/L (12-78); SODIUM 137 mmol/L (136-145); TOTAL PROTEIN 7.4 gm/dL (6.4-8.2)
[2019-03-25 02:24] LABS: URINE AMPHETAMINES < 1000 (1000ng/ml); URINE BARBITURATES < 200 (200ng/ml); URINE CANNABINOIDS (THC) < 50 (50ng/ml); URINE COCAINE < 300 (300ng/ml); URINE METHADONE < 300 (300ng/ml)
[2019-03-25 02:25] LABS: URINE BENZODIAZEPINES < 200 (200ng/ml); URINE OPIATES > 300 (300ng/ml)
[2019-03-25 02:28] LABS: BASO % 0.4 % (0.0-1.0); EOS # 0.1 10*3/uL (0.0-0.4); EOS % 0.9 % (1.0-4.0); HEMATOCRIT 34.7 % (42.0-52.0); HEMOGLOBIN 10.6 g/dl (14.0-18.0); LYMPH % 13.7 % (27.0-41.0); MEAN CELL VOLUME 101.2 fl (80.0-94.0); MEAN CORPUSCULAR HGB 30.9 pg (27.0-31.0); MEAN CORPUSCULAR HGB CONC 30.5 g/dl (33.0-37.0); MEAN PLATELET VOLUME 8.6 fl (9.6-12.3); MONO # 0.6 10*3/uL (0.1-1.0); MONO % 7.6 % (3.0-9.0); NEUT # 5.6 10*3/uL (2.3-7.9); NEUT % 76.5 % (47.0-73.0); PLATELET COUNT AUTOMATED 425 10*3/uL (130-400); RED BLOOD COUNT 3.43 10*6/uL (4.50-5.90); RED CELL DISTRI WIDTH 12.2 % (0-14.5); WHITE BLOOD COUNT 7.4 10*3/uL (4.8-10.8)
[2019-03-25 02:30] LABS: EPITHELIAL CELLS 0-2
[2019-03-25 02:41] LABS: URINE PHENCYCLIDINE < 25 (25ng/ml)
[2019-03-25] MEDS ORDERED: DIFLUCAN150 MG PO (02:48)
== END 2019-03-25 03:05 | disposition home or self-care (01) ==
LOC: ED 23:43
PROVIDERS: Nurse Practitioner Family
DX: B37.0 Candidal stomatitis (principal); I10 Essential (primary) hypertension; J45.909 Unspecified asthma, uncomplicated; Z88.8 Allergy status to other drugs, medicaments and biological substances; Z88.5 Allergy status to narcotic agent

== ENCOUNTER 2019-04-07 23:47 | Emergency (ER) | payer OTHER ==
[~2019-04-07] VITALS: Ht 170.1 cm; Wt 89.8 kg
[~2019-04-07 23:47] MED LIST changes: +DIFLUCAN150 MG PO
[2019-04-08] MEDS ORDERED: SEPTDS PO (01:11)
== END 2019-04-08 01:41 | disposition home or self-care (01) ==
LOC: ED 23:47
DX: H65.92 Unspecified nonsuppurative otitis media, left ear (principal); H92.01 Otalgia, right ear; I10 Essential (primary) hypertension; G89.29 Other chronic pain; J45.909 Unspecified asthma, uncomplicated; F17.200 Nicotine dependence, unspecified, uncomplicated; Z88.5 Allergy status to narcotic agent; Z88.8 Allergy status to other drugs, medicaments and biological substances; Z79.899 Other long term (current) drug therapy

== ENCOUNTER 2019-08-16 16:28 | Emergency (ER) | payer OTHER ==
[~2019-08-16] VITALS: Ht 170.1 cm; Wt 74.8 kg
[~2019-08-16 16:28] MED LIST changes: +SEPTDS PO
[2019-08-16 17:27] LABS: BASO % 0.4 % (0.0-1.0); EOS # 0.1 10*3/uL (0.0-0.4); EOS % 0.6 % (1.0-4.0); HEMATOCRIT 37.6 % (42.0-52.0); LYMPH # 1.2 10*3/uL (1.3-4.4); MEAN CELL VOLUME 104.2 fl (80.0-94.0); MEAN CORPUSCULAR HGB 33.2 pg (27.0-31.0); MEAN CORPUSCULAR HGB CONC 31.9 g/dl (33.0-37.0); MEAN PLATELET VOLUME 8.4 fl (9.6-12.3); MONO # 0.6 10*3/uL (0.1-1.0); MONO % 6.3 % (3.0-9.0); NEUT # 7.5 10*3/uL (2.3-7.9); NEUT % 79.4 % (47.0-73.0); PLATELET COUNT AUTOMATED 380 10*3/uL (130-400); RED BLOOD COUNT 3.61 10*6/uL (4.50-5.90); RED CELL DISTRI WIDTH 11.6 % (0-14.5); WHITE BLOOD COUNT 9.4 10*3/uL (4.8-10.8)
[2019-08-16 17:44] LABS: ALBUMIN 2.8 gm/dl (3.1-4.5); ALKALINE PHOSPHATASE 90 U/L (45-117); BUN 8 mg/dl (7-24); CHLORIDE 106 mmol/L (98-107); CREATININE 0.54 mg/dL (0.70-1.30); LIPASE 100 U/L (73-393); POTASSIUM 3.4 mmol/L (3.5-5.1); SGOT/AST 5 IU/L (3-35); SGPT/ALT 13 U/L (12-78); SODIUM 141 mmol/L (136-145)
[2019-08-16 19:10] LABS: URINE AMPHETAMINES < 1000 (1000ng/ml); URINE BARBITURATES < 200 (200ng/ml); URINE BENZODIAZEPINES < 200 (200ng/ml); URINE CANNABINOIDS (THC) < 50 (50ng/ml); URINE COCAINE < 300 (300ng/ml); URINE METHADONE < 300 (300ng/ml); URINE OPIATES < 300 (300ng/ml)
[2019-08-16 19:13] LABS: URINE PHENCYCLIDINE < 25 (25ng/ml)
[2019-08-16] MEDS ORDERED: FLUCONAZOLE100 MG PO (21:51)
[2019-08-16] MEDS ORDERED: AUGMENTIN 875-875 MG PO (21:51)
== END 2019-08-16 22:00 | disposition home or self-care (01) ==
LOC: ED 16:28
PROVIDERS: Nurse Practitioner Family
DX: J34.2 Deviated nasal septum (principal); J32.9 Chronic sinusitis, unspecified; I10 Essential (primary) hypertension; J45.909 Unspecified asthma, uncomplicated; Z79.899 Other long term (current) drug therapy; Z87.891 Personal history of nicotine dependence

== ENCOUNTER 2020-01-28 23:14 | Emergency (ER) | payer OTHER ==
[~2020-01-28] VITALS: Ht 170.1 cm; Wt 70.3 kg
[~2020-01-28 23:14] MED LIST changes: +AUGMENTIN 875-875 MG PO
== END 2020-01-29 00:10 | disposition home or self-care (01) ==
LOC: ED 23:14
DX: H91.91 Unspecified hearing loss, right ear (principal); H91.92 Unspecified hearing loss, left ear; Z79.899 Other long term (current) drug therapy; Z88.8 Allergy status to other drugs, medicaments and biological substances; Z88.5 Allergy status to narcotic agent

== ENCOUNTER 2020-10-05 20:42 | Emergency (ER) | payer OTHER | END 2020-10-06 06:28 | disposition left against medical advice (07) | LOC: ED 20:48 | DX: M79.604 Pain in right leg (principal); M79.605 Pain in left leg; R03.0 Elevated blood-pressure reading, without diagnosis of hypertension; Z53.21 Procedure and treatment not carried out due to patient leaving prior to being seen by health care provider ==

== ENCOUNTER 2020-10-07 19:34 | Emergency (ER) | payer OTHER ==
[~2020-10-07] VITALS: Wt 69.4 kg
== END 2020-10-07 20:09 | disposition home or self-care (01) ==
LOC: ED 19:34
DX: I10 Essential (primary) hypertension (principal); Z88.5 Allergy status to narcotic agent; Z88.8 Allergy status to other drugs, medicaments and biological substances; Z79.899 Other long term (current) drug therapy; Z79.2 Long term (current) use of antibiotics; Z98.890 Other specified postprocedural states

== ENCOUNTER 2023-02-13 14:30 | Emergency (ER) | payer OTHER ==
[~2023-02-13] VITALS: Wt 56.7 kg
[2023-02-13] MEDS ORDERED: NAPROSYN500 MG PO (17:09)
== END 2023-02-13 17:23 | disposition home or self-care (01) ==
LOC: ED 14:30
DX: M70.821 Other soft tissue disorders related to use, overuse and pressure, right upper arm (principal); M70.21 Olecranon bursitis, right elbow; J45.909 Unspecified asthma, uncomplicated; I10 Essential (primary) hypertension; Z88.5 Allergy status to narcotic agent; Z88.8 Allergy status to other drugs, medicaments and biological substances; Z98.890 Other specified postprocedural states; Z87.891 Personal history of nicotine dependence

== ENCOUNTER 2024-09-19 03:46 | Observation (INO) | payer OTHER ==
[~2024-09-19] VITALS: Ht 157.4 cm; Wt 59.0 kg
[2024-09-19] VITALS (10 sets, daily range): BP systolic 119–179; BP diastolic 72–105
[2024-09-19 04:17] LABS: BASO # 0.1 10*3/uL (0.0-0.1); BASO % 0.8 % (0.0-1.0); EOS # 0.1 10*3/uL (0.0-0.4); EOS % 1.3 % (1.0-4.0); MEAN CELL VOLUME 101.5 fl (80.0-94.0); MEAN CORPUSCULAR HGB 30.3 pg (27.0-31.0); MEAN PLATELET VOLUME 8.2 fl (9.6-12.3); MONO # 0.7 10*3/uL (0.1-1.0); MONO % 7.4 % (3.0-9.0); NEUT # 5.8 10*3/uL (2.3-7.9); NEUT % 63.8 % (47.0-73.0); NUCLEATED RED BLOOD CELL 0.0 % (0.0-0.0); NUCLEATED RED BLOOD CELL 0.0 10*3/uL (0.0-0.0); PLATELET COUNT AUTOMATED 524 10*3/uL (130-400); RED CELL DISTRI WIDTH 12.4 % (0-14.5)
[2024-09-19] MEDS ORDERED: Ondansetron Hydrochloride 4 MG/2 ML VIAL IV ONE (04:25)
[2024-09-19] MEDS ORDERED: SODIUM CHLORIDE 0.9% 1,000 ML IV ONE ×2 (04:25→07:00)
[2024-09-19] MEDS ORDERED: TRANEXAMIC ACID IN NACL,ISO-OS 100 ML IV ONE ×2 (04:55→05:55)
[2024-09-19] MEDS ORDERED: SODIUM CHLORIDE 0.9% 2,000 ML IV ONE (04:58)
[2024-09-19 05:10] LABS: BUN 11 mg/dl (9-23)
[2024-09-19] MEDS ORDERED: SODIUM CHLORIDE 0.9% 500 ML IV ONE (05:11)
[2024-09-19] MEDS ORDERED: SODIUM CHLORIDE 0.9% 50 ML IV ONE (05:18)
[2024-09-19] MEDS ORDERED: SODIUM CHLORIDE 0.9% 100 ML IV ONE (05:43)
[2024-09-19] MEDS ORDERED: AZITHROMYCIN 250 ML IV ONE (06:25)
[2024-09-19] MEDS ORDERED: BUPRENORPHINE-1 EAC1 SL (06:44)
[2024-09-19] MEDS ORDERED: ACETAMINOPHEN 650 MG SUPP R ONE (09:15)
[2024-09-19] MEDS ORDERED: BISACODYL 10 MG SUPP R PRN (13:45)
[2024-09-19] MEDS ORDERED: BISACODYL 5 MG TAB PO PRN (13:45)
[2024-09-19 15:55] LABS: BASO # 0.0 10*3/uL (0.0-0.1); BASO % 0.2 % (0.0-1.0); EOS # 0.0 10*3/uL (0.0-0.4); EOS % 0.2 % (1.0-4.0); MEAN CORPUSCULAR HGB 30.7 pg (27.0-31.0); MEAN PLATELET VOLUME 8.6 fl (9.6-12.3); MONO # 0.5 10*3/uL (0.1-1.0); MONO % 4.3 % (3.0-9.0); NEUT # 10.9 10*3/uL (2.3-7.9); NEUT % 87.8 % (47.0-73.0); NUCLEATED RED BLOOD CELL 0.0 % (0.0-0.0); NUCLEATED RED BLOOD CELL 0.0 10*3/uL (0.0-0.0); RED CELL DISTRI WIDTH 15.1 % (0-14.5)
[2024-09-19 15:57] LABS: MEAN CELL VOLUME 97.4 fl (80.0-94.0)
[2024-09-19 15:58] LABS: PLATELET COUNT AUTOMATED 253 10*3/uL (130-400)
[2024-09-19] MEDS ORDERED: BUPRENORPHINE HCL/NALOXONE 8 MG-2 MG SL TABLET SL SCH (22:00)
[2024-09-20] MEDS ORDERED: AZITHROMYCIN 250 ML IV SCH (06:30)
== END 2024-09-19 19:09 | disposition short-term general hospital (02) ==
LOC: ED 03:46 → EDHOLD 12:21
PROVIDERS: Internal Medicine; ADMIT Internal Medicine; ATTEND Internal Medicine
DX: K92.2 Gastrointestinal hemorrhage, unspecified (principal); R04.0 Epistaxis; J69.0 Pneumonitis due to inhalation of food and vomit; D75.839 Thrombocytosis, unspecified; D53.9 Nutritional anemia, unspecified; R73.9 Hyperglycemia, unspecified; I10 Essential (primary) hypertension; Z79.899 Other long term (current) drug therapy